=== PATIENT | female | born 1985 | race Caucasian/White ===

== ENCOUNTER 2017-02-12 16:14 | Emergency (ER) | payer OTHER ==
--- NOTE | 2017-02-12 16:36 | ED Physician Documentation ---
Hand Injury - HISTORIAN Historian: patient - HPI Chief Complaint: Hand Injury Additional Information: crush injury at work-detention locker door fell on lt proximal hand w/pain swelling numbness Onset: just prior to arrival Where: work Severity: moderate Duration: persistent since Context: blow Location of Injury: L hand Modifying Factors: pain on movement - ROS CONST: no problems GI/: denies: problems urinating, nausea, vomiting NEURO: other (numbness tingling lt distal hand los lateral aspect) CVS/RESP: none LNMP: denies: (hysterectomy) EYES/ENT: none MS/SKIN/LYMPH: none - PAST HX Past History: other (breast canncer---double mastectomy--hysterectomy) Allergies/Adverse Reactions: Allergies Allergy/AdvReac Type Severity Reaction Status Date / Time No Known Allergies Allergy Verified 02/12/17 16:25 Home Medications: Ambulatory Orders Medication Instructions Recorded Trazodone HCl 50 mg PO HS 10/15/15 Anastrozole [Arimidex] 2.5 mg PO DAILY 03/21/16 Gabapentin [Neurontin] 300 mg PO BID 02/12/17 Lamotrigine [Lamictal] 200 mg PO QDAY 02/12/17 Tramadol HCl [Ultram] 50 mg PO Q6 PRN 02/12/17 Venlafaxine HCl [Effexor] 37.5 mg PO QD 02/12/17 - SOCIAL HX Smoking History: less than 1 pack/day Alcohol Use: none Drug Use: none - FAMILY HX Family History: no significant history - VITAL SIGNS Vital Signs: Vital Signs Temp Pulse Resp BP Pulse Ox 98/72 03/21/16 19:48 - REVIEWED ASSESSMENTS Nursing Assessment Reviewed: Yes Vitals Reviewed: Yes ED Results Lab/Radiology - Radiology Radiology Impressions: no fracture of sig injury seen - Orders Orders: ED Orders Category Date Time Status HAND 3 VIEWS OR MORE [RAD] Stat Exams 02/12/17 Ordered Hand Injury Physical Exam - Exam General Appearance: moderate distress Hand: tenderness, soft tissue tenderness, pain. No: deformity, nail partial avulsion Wrist: normal inspection Neuro: sensation nml Vascular: no vascular compromise Tendons: tendon function nml. No: tendon visualized Forearm/Elbow/Arm: uninjured above wrist Head/ENT: nml inspection Neck/Back: nml inspection Resp/CVS: chest non-tender, breath sounds nml, heart sounds nml, no resp. distress, lungs clear Abdomen: non-tender Discharge Clincal Impression: Crushing injury of left hand Home Medications: Ambulatory Orders Trazodone HCl 50 mg PO HS 10/15/15 Anastrozole [Arimidex] 2.5 mg PO DAILY 03/21/16 Gabapentin [Neurontin] 300 mg PO BID 02/12/17 Lamotrigine [Lamictal] 200 mg PO QDAY 02/12/17 Tramadol HCl [Ultram] 50 mg PO Q6 PRN 02/12/17 Venlafaxine HCl [Effexor] 37.5 mg PO QD 02/12/17 Comments: pt to rest hand avoid trauma until sig better--suspect 3-4 days Condition: Good Disposition: 01 HOME, SELF-CARE Decision to Admit: NO Decision Time: 17:25
[2017-02-12 17:30] VITALS: BP 102/69
--- NOTE | 2017-02-12 23:37 | Diagnostic Imaging Report ---
HARJIT NIEVES [facility] [address] [facility] [address] [address] Report Submission Date: Feb 12, 2017 4:58:26 PM CDT Patient Study Name: FABRIZIO VELARDE Date: Feb 12, 2017 4:37:14 PM CDT Modality Type: CR Gender: F Description: UPPER EXTREMITY : 83 Institution: [facility] Physician: HARJIT NIEVES Left hand 3 views History: Pain and paresthesias after crush injury Findings: The left hand is unremarkable without fracture, dislocation, arthropathy, or focal bone lesion. Electronically signed on Feb 12, 2017 4:58:26 PM CDT by: Goyo LOVE
== END 2017-02-12 17:25 | disposition home or self-care (01) ==
LOC: ED 16:14
DX: S69.92XA Unspecified injury of left wrist, hand and finger(s), initial encounter (principal); W23.1XXA Caught, crushed, jammed, or pinched between stationary objects, initial encounter; Y92.149 Unspecified place in prison as the place of occurrence of the external cause; Y99.0 Civilian activity done for income or pay
CPT/HCPCS: 73130; 99283

== ENCOUNTER 2018-07-07 10:17 | Emergency (ER) | payer OTHER ==
[2018-07-07 10:28] VITALS: BP 96/56
--- NOTE | 2018-07-07 10:37 | ED Physician Documentation ---
Shoulder Injury/Pain - HPI Stated Complaint: SHOULDER PAIN Chief Complaint: Upper Extremity Problem Additional Information: Patient presents to the ED with a 2 day history of left shoulder pain after moving furniture. She states the worsened while she was at work yesterday. Raising her left arm makes the pain worse, rest improves the pain. The pain is sharp stabbing 6/10 when she raises her arm, dull achy 3/10 at rest. Patient denies any previous injury or dislocation. Onset: days ago (2) Severity: mild Pain: persistent Context: other (moving furniture) Associated Symptoms: denies: weakness, bruising, tingling, unable to move shoulder, numbness Further Comments: no - ROS CONST: no problems CVS/RESP: none GI/: denies: nausea MS/SKIN/LYMPH: none NEURO: none. denies: headache - PAST HX Past History: none Allergies/Adverse Reactions: Allergies Allergy/AdvReac Type Severity Reaction Status Date / Time No Known Allergies Allergy Verified 07/07/18 10:26 Home Medications: Ambulatory Orders Medication Instructions Recorded Lamotrigine [Lamictal] 200 mg PO QDAY 02/12/17 Tramadol HCl [Ultram] 50 mg PO Q6 PRN 02/12/17 Cyclobenzaprine HCl [Flexeril] 10 mg PO Q8 PRN #30 tablet 07/07/18 - SOCIAL HX Smoking History: non-smoker Alcohol Use: none Drug Use: none - FAMILY HX Family History: none - VITAL SIGNS Vital Signs: Vital Signs Temp Pulse Resp BP Pulse Ox 97.8 F 97 H 20 96/56 98 07/07/18 10:23 07/07/18 10:23 07/07/18 10:23 07/07/18 10:23 07/07/18 10:23 - REVIEWED ASSESSMENT Nursing Assessment Reviewed: Yes Vitals Reviewed: Yes Progress - EKG/XRAY/CT Xray Comments: Left shoulder - no fracture or dislocation ED Results Lab/Radiology - Orders Orders: ED Orders Category Date Time Status SHOULDER 2 VIEWS OR MORE [RAD] Stat Exams 07/07/18 Ordered Shoulder Injury Physical Exam - Physical Exam General Appearance: no acute distress Shoulder: full ROM Upper Extremity: soft-tissue tenderness Neuro: sensation nml Vascular: no vascular compromise Skin: warm/dry, normal color Head/ENT: nml inspection Respiratory: chest non-tender CVS: reg rate & rhythm Abdomen: soft, normal bowel sounds Discharge Clincal Impression: Muscle spasm of left shoulder Prescriptions: Cyclobenzaprine HCl [Flexeril] 10 mg PO Q8 PRN #30 tablet PRN Reason: Spasms Referrals: Primary Doctor,No [Primary Care Provider] - 2 Days Additional Instructions: Apply ice and heat alternating to affected area as needed. Stay active. Do not take Tramadol with Flexeril(cyclobenzaprine). Ibuprofen may be taken instead. Decision to Admit: NO Date of Decison to Admit: 07/07/18 Decision Time: 11:15
--- NOTE | 2018-07-07 13:43 | Diagnostic Imaging Report ---
YONI SRINIVASAN [facility] [address] [facility] [address] [address] Report Submission Date: Jul 07, 2018 11:19:01 AM CDT Patient Study Name: FABRIZIO VELARDE Date: Jul 07, 2018 10:51:22 AM CDT Modality Type: DX Gender: F Description: SHOULDER : 83 Institution: [facility] Physician: YONI SRINIVASAN Left shoulder History: Pain after moving furniture Three views of the left shoulder demonstrate movement of the humeral head into internal and external rotation without evidence for acute fracture or dislocation. The acromioclavicular joint is intact. Impression: No osseous abnormality. Electronically signed on Jul 07, 2018 11:19:01 AM CDT by: Priya LOVE
== END 2018-07-07 11:18 | disposition home or self-care (01) ==
LOC: ED 10:17
DX: M62.838 Other muscle spasm (principal)
CPT/HCPCS: 73030; 99283